=== PATIENT | female | born 1950 | race Caucasian/White ===

== ENCOUNTER 2018-01-11 08:35 | Outpatient (CLI) | payer MEDICARE, MEDICAID ==
--- NOTE | 2018-01-11 10:47 | CT ---
POSTCONTRAST SOFT TISSUE NECTK CT CHEST CT ABDOMEN CT: Date: 01/11/18 HISTORY: Malignant neoplasm of lung. Metastasis to lymph nodes and liver. COMPARISON: 05/14/17. TECHNIQUE: Postcontrast soft tissue neck CT, chest CT, and abdomen CT are performed in the axial plane. Reformat jaren images are submitted for interpretation. FINDINGS: POSTCONTRAST SOFT TISSUE NECK CT: There is fullness along the posterior left oral cavity. The possibility of a mucosal based lesion can not be completely excluded. There is some mass effect due to medial deviation of the left internal ca rotid artery. Midline fatty raphe of the tongue is preserved. Limited evaluation of the oral cavity d ue to dental amalgam artifact. Epiglottis has a normal caliber. Pre-epiglottic fat is preserved. Ther e is no prevertebral soft tissue swelling. Symmetric attenuation of the parotid and submandibular gla nds. Symmetric attenuation of the sternocleidomastoid muscles. No abnormal attenuation throughout the neck . No evidence of lymphadenopathy. Varying degrees of central canal stenosis and foraminal narrowing on the basis of degenerative change . CHEST CT: No mediastinal mass, lymphadenopathy, or hematoma. Heart size is within normal limits. No pericardial effusion. Thoracic aorta and abdominal aorta have an overall normal caliber. No periaortic fat stran ding. There is mild prominence of the infrarenal abdominal aorta, measuring 2.6 x 2.5 cm. Central pulmonary arteries have appropriate enhancement. No mediastinal mass, lymphadenopathy, or hematoma. There are coronary artery calcifications. No signi ficant pericardial effusion. Trachea and central bronchi are patent. No suspicious masses or nodules in the left lung. Calcified g ranuloma in the left lower lobe. Atelectasis or scarring in the lingula. Spiculated opacity in the ri ght upper lobe measuring 0.7 cm. Lesion is too small for percutaneous biopsy. No additional masses in the right lung. The right upper lobe mass has developed since the previous examination. ABDOMEN CT: Dilatation of the intra and extrahepatic biliary system due to previous cholecystectomy. Liver, splee n, pancreas, and adrenal glands have appropriate enhancement. Stable hypodensity in the right hepatic lobe, measuring 0.8 x 0.6 cm. Symmetric enhancement of the kidneys. Attenuation of the psoas muscles. No mesenteric mass, lymphadenopathy, free air or free fluid. Limited evaluation of the alimentary canal due to lack of oral contrast. No lytic or blastic lesions in the visualized osseous structures. IMPRESSION: 1. Spiculated nodule in the right upper lobe, developed since the prior examination. Lesion is too s mall for percutaneous biopsy. PET imaging is recommended. 2. Stable hypodensity in the right hepatic lobe. 3. Abnormal soft tissue density in posterior left oral cavity. Direct visualization is recommended. POS: [facility]
[2018-01-11] MEDS ORDERED: Iopamidol 370 76% 100 ML VIAL ONE (13:22)
== END 2018-01-11 08:36 | disposition home or self-care (01) ==
LOC: CT 08:35
PROVIDERS: ATTEND Internal Medicine Medical Oncology
DX: C34.90 Malignant neoplasm of unspecified part of unspecified bronchus or lung (principal); C78.7 Secondary malignant neoplasm of liver and intrahepatic bile duct; C77.9 Secondary and unspecified malignant neoplasm of lymph node, unspecified; R91.8 Other nonspecific abnormal finding of lung field
CPT/HCPCS: 70491; 71260; 74160

== ENCOUNTER 2018-02-23 08:33 | Outpatient (CLI) | payer MEDICARE, MEDICAID ==
--- NOTE | 2018-02-23 10:47 | CT ---
CT OF THE CHEST WITH CONTRAST AND CT OF THE ABDOMEN WITH CONTRAST: Date: 02/23/18 HISTORY: 68-year-old female with malignant neoplasm of the lung. Abdominal aortic aneurysm. COMPARISON: 05/14/17 and 01/11/18. TECHNIQUE: 1. Multiple contiguous axial images were obtained in a CT of the chest with contrast. Coronal reform ats were performed. 2. Multiple contiguous axial images were obtained in a CT of the abdomen only with contrast. PO cont rast was administered. Coronal reformats were performed. FINDINGS: CT CHEST: There is a spiculated mass on image 32 of 66 in the right upper lobe measuring 7.0 mm in size. A calc ified granuloma is seen in the left lung base. No other pulmonary nodules are seen. Emphysematous khalif nges are seen in the lungs. No pneumothorax or pleural effusions are seen. The heart is normal in size without focal cardiac abnormality. Calcifications are seen in the coronar y arteries. No hilar or mediastinal lymphadenopathy are seen. There are calcified hilar and mediastin al lymph nodes. The chest wall soft tissues are unremarkable. No suspicious osseous lesions are seen in the bones of the thorax. CT ABDOMEN: The gallbladder has been removed. There is mild enlargement of the common bile duct and of the centra l intrahepatic biliary tree, which may be a reservoir effect from prior cholecystectomy. This is unch anged compared to the prior examination. There is a stable hypodense region in the right lobe of the liver measuring 6-7 mm in size. This is nonspecific. No new liver lesions are seen. A subcentimeter hypodensity is seen in the right kidney which is too small to definitely characterize but likely represents a cyst. The left kidney, adrenal glands, spleen, and pancreas are unremarkable . No free air, free fluid, or stranding changes are seen in the abdomen. The visualized large and small bowel are unremarkable. There is ectasia of the aorta at the level of the renal arteries. This measures 2.6 cm in greatest di mension. No abdominal adenopathy is seen. No suspicious osseous lesions are seen in the lumbar spine. The abdominal wall soft tissues are unrem arkable. IMPRESSION: 1. Spiculated mass in the right upper lobe may represent a metastatic focus. This has not changed si gnificantly compared to the prior examination. 2. Stable hypodensity in the right liver is too small to definitively characterize. 3. Right renal cyst. POS: [facility]
[2018-02-23] MEDS ORDERED: Iopamidol 370 76% 100 ML VIAL ONE (14:45)
== END 2018-02-23 08:34 | disposition home or self-care (01) ==
LOC: CT 08:33
PROVIDERS: ATTEND Internal Medicine Cardiovascular Disease
DX: C34.90 Malignant neoplasm of unspecified part of unspecified bronchus or lung (principal); C39.9 Malignant neoplasm of lower respiratory tract, part unspecified; N28.1 Cyst of kidney, acquired; R91.8 Other nonspecific abnormal finding of lung field; R93.2 Abnormal findings on diagnostic imaging of liver and biliary tract
CPT/HCPCS: 71260; 74160

== ENCOUNTER 2018-04-22 15:13 | Observation (INO) | payer MEDICARE, MEDICAID ==
--- NOTE | 2018-04-22 16:58 | PDOC.EVN ---
Event Note - Event Note Event Note: H&P dictated [id number]
[2018-04-22 17:31] VITALS: BMI 23.8
[2018-04-22] MEDS ORDERED: Nicotine 14 MG PATCH TD SCH (18:00)
--- NOTE | 2018-04-22 19:24 | HP ---
PRIMARY CARE PHYSICIAN: Madison Fallon M.D. CHIEF COMPLAINT: Left-sided weakness. HISTORY OF PRESENT ILLNESS: The patient is a 68-year-old female with a past medical history of strok e 10 years ago with residual right-sided deficits, hyperlipidemia, COPD, hypothyroidism as well as a history of [place], status post 2 stents, last June in 2016, history of metastatic small cell lung cance r, reportedly stable who presents with left-sided weakness of the upper and lower extremity that was more than baseline. Symptoms started this morning. She states that her left arm started hurting a l ittle bit, but then actually got weak. Her left lower extremity was also noted to be somewhat heavy. However, the patient had a CT scan done in the emergency department in [place], which showed n o evidence of acute cortical infarct. There is a question of whether to perform tPA, but patient's s ymptoms were resolving by that point, so she was transferred over here for further management and gregorio luation. At this time, patient states that her left lower extremity is actually back to baseline, bu t her left upper extremity is still somewhat weak. Labs were very grossly unremarkable with normal c hemistry, CBC. Patient reports no chest pain, shortness of breath, nausea or vomiting. The patient still actively smokes about half pack per day. REVIEW OF SYSTEMS: Twelve point review of systems negative except the specified in the HPI. PAST MEDICAL HISTORY: History of CVA, hyperlipidemia, bipolar disorder, hypothyroidism, COPD, stable metastatic small cell lung cancer. PAST SURGICAL HISTORY: History of right knee replacement, cataract surgery, left wrist repair, histo ry of hysterectomy and tonsillectomy. FAMILY HISTORY: Mother has history of stroke. SOCIAL HISTORY: The patient has smoked half pack a day for 30 years. She denies any alcohol abuse. No history of illicit drugs. HOME MEDICATIONS: 1. Aspirin 81 mg p.o. daily. 2. Lipitor 40 mg p.o. daily. 3. Synthroid 25 mcg p.o. daily. 4. Depakote 500 mg p.o. daily. 5. Celexa 10 mg p.o. daily. 6. Advair. 7. Zantac 150 mg p.o. b.i.d. ALLERGIES: Patient is allergic to IODINATED CONTRAST, PENICILLIN, SULFA, VICODIN, HYDROCODONE, and C ODEINE. PHYSICAL EXAMINATION: VITAL SIGNS: Temperature 97, blood pressure 132/71, pulse 71, respiration rate 16. GENERAL: Awake, alert, oriented, no acute distress. HEENT: Mucous membranes moist. HEART: Regular rate and rhythm, no murmurs, rubs or gallops. LUNGS: Slightly diminished at the bases bilaterally, but no wheezes. ABDOMEN: Nontender, nondistended. EXTREMITIES: No cyanosis, clubbing or edema. NEUROLOGIC: Left upper extremity is approximately 4/5 in strength of the right upper extremity, appr oximately 5/5 in strength. Left lower extremity and right lower extremity strength approximately sym metrical. LABORATORY VALUES: CBC, WBC 6.8, hemoglobin 12, hematocrit 36, platelets 212. PT 12.6, INR 0.9, PTT 27.6. D-dimer 0.31, sodium 139, potassium 4.4, chloride 106, bicarbonate 23, BUN 11, creatinine 0.7 , glucose was 104, total bilirubin was 0.4, AST 11, ALT 9, alkaline phosphatase 75. Troponin negativ e. BNP was 76, albumin 3.9. CT of the head again was negative for any acute intracranial abnormalit y. Chest x-ray demonstrated no acute cardiopulmonary abnormality, stable chronic lung changes. Stab le mild cardiomegaly. ASSESSMENT AND PLAN: The patient is a 68-year-old female with a history of hyperlipidemia, history o f cerebrovascular accident, history of abdominal aortic aneurysm under surveillance, history of coron ana artery disease status post 2 stents in 06/2017, hypothyroidism, and chronic obstructive pulmonary disease who presents with a left-sided weakness that is weaker than baseline. This may represent tr ansient ischemic attack symptoms are improving. Given the symptoms started this morning and it is no w approximately 5:00 p.m., the patient is out of the window for TPA. 1. Transient ischemic attack: We will obtain stroke workup and Neurology consultation. We will obt ain MRI of the brain, carotid Dopplers as well as echocardiogram of the heart with bubble study to ru le out patent foramen ovale. We will add Plavix. The patient is reportedly just taking a baby aspir in once a day. The patient denies any knowledge of ever having taken Plavix, even though it was stat ed in the past on documentation that she was supposed to be on it after her cardiac catheterization l ast year. Therefore, we will choose dual antiplatelet therapy due to the history of coronary artery disease as well. Smoking cessation and risk factor modification. We will obtain lipids and A1c. 2. Hyperlipidemia: Continue Lipitor 40 mg p.o. daily. 3. Hypothyroidism: Continue Synthroid. 4. Coronary artery disease, status post stent in 06/2017. Aspirin, Plavix, and statin. 5. Chronic obstructive pulmonary disease: We will restart inhalers when medications reconciled. 6. Bipolar disorder. We will continue Depakote. 7. Deep venous thrombosis prophylaxis: Subcutaneous Lovenox. 8. The patient is a FULL CODE and this was confirmed at bedside.
[2018-04-22] MEDS ORDERED: Divalproex Sodium DR 500 MG TAB PO SCH (21:00)
[2018-04-22] MEDS ORDERED: Atorvastatin Calcium 40 MG TAB PO SCH (21:00)
[2018-04-23 05:11] LABS: Anion Gap 11 mmol/L (10-20); BUN (Urea Nitrogen) 15 mg/dL (9.8-20.1); Calc. Creatinine Clearance 67 mL/min (70-130); Calcium 9.3 mg/dL (7.8-10.44); Carbon Dioxide 25 mmol/L (23-31); Chloride 107 mmol/L (98-107); Cholesterol 118 mg/dl (< 200 Desired); Estimated GFR-MDRD 73; Glucose 102 mg/dL (80-115); HDL Cholesterol 40 mg/dL (>60 Neg Risk); LDL Cholesterol, Calculated 60 mg/dL; Potassium 4.6 mmol/L (3.5-5.1); Sodium 138 mmol/L (136-145); Triglycerides 90 mg/dL (Less than 150)
[2018-04-23 05:54] LABS: Eosinophils 3 % (0-10); Lymphocytes 45 % (21-51); MDiff Complete? YES; Mean Corpuscular HGB CONC 34.4 g/dL (32.0-36.0); Mean Corpuscular Hemoglobin 33.9 pg (27.0-31.0); Mean Corpuscular Volume 98.5 fl (81.0-99.0); Mean Platelet Volume 7.1 fL (7.4-10.4); Monocytes 7 % (0-10); Neutrophil 45 % (42-75); PLT Morphology Comment Appears Adequate; Platelet Count 201 thou/uL (130-400); RBC Distribution Width 12.6 % (11.5-14.5); RBC Morphology Normal; Red Blood Cell (RBC) Count 3.55 mill/uL (4.20-5.40); White Blood Cell (WBC) Count 6.4 thou/uL (4.8-10.8)
[2018-04-23] MEDS ORDERED: Levothyroxine Sodium 25 MCG TAB PO SCH (06:00)
--- NOTE | 2018-04-23 07:16 | PDOC.PN ---
- Subjective Encounter Start Date: 04/23/18 Encounter Start Time: 07:14 Subjective: no weakness, dysartria, etc - Objective Resuscitation Status: Resuscitation Status FULL:Full Resuscitation MAR Reviewed: Yes Vital Signs & Weight: Vital Signs (12 hours) Temp Pulse Resp BP Pulse Ox 04/23/18 04:00 97.7 F 66 18 121/68 94 L 04/22/18 23:54 98.2 F 73 18 110/65 93 L 04/22/18 20:48 98.2 F 73 18 04/22/18 20:00 98.5 F 84 16 99/73 93 L Weight Weight 134 lb 3.2 oz I&O: 04/22/18 04/23/18 04/24/18 06:59 06:59 06:59 Intake Total 300 Balance 300 Result Diagrams: 04/23/18 04:43 04/23/18 04:43 Phys Exam - Physical Examination Neck: no JVD Respiratory: clear to auscultation bilateral Cardiovascular: RRR, no significant murmur Gastrointestinal: soft, non-tender Musculoskeletal: no edema Neurological: non-focal Dx/Plan (1) TIA (transient ischemic attack) Status: Acute Qualifiers: Transient cerebral ischemia type: carotid artery syndrome (hemispheric) Qualified Code(s): G45.1 - Carotid artery syndrome (hemispheric) (2) CAD (coronary artery disease) Code(s): I25.10 - ATHSCL HEART DISEASE OF [place] CORONARY ARTERY W/O ANG PCTRS Status: Chronic Qualifiers: Coronary Disease-Associated Artery/Lesion type: [place] artery [place] vs. transplanted heart: [place] heart Associated angina: without angina Qualified Code(s): I25.10 - Atherosclerotic heart disease of [place] coronary artery without angina pectoris (3) Dyslipidemia Code(s): E78.5 - HYPERLIPIDEMIA, UNSPECIFIED Status: Chronic (4) S/P PTCA (percutaneous transluminal coronary angioplasty) Code(s): Z98.61 - CORONARY ANGIOPLASTY STATUS Status: Chronic (5) COPD Status: Chronic (6) Small cell carcinoma Code(s): C80.1 - MALIGNANT (PRIMARY) NEOPLASM, UNSPECIFIED Status: Chronic - Plan neuro exam WNL -: on ASA, plavix -: MRI, carotid US pending * .
--- NOTE | 2018-04-23 08:40 | ULT ---
BILATERAL CAROTID DUPLEX ULTRASOUND: Date: 04/23/18 HISTORY: CVA. FINDINGS: Real-time color Doppler evaluation of the right and left carotid systems shows minimal plaque formati on on the left and slightly more pronounced plaque formation at the origin of the right internal pelayo tid artery. On the right side, peak systolic velocities of the common carotid were 55 cm/second. Internal carotid velocities were 67 cm/second and external carotid velocities were 73 cm/second. On the left side, peak systolic velocities of the common carotid were 87 cm/second. Internal carotid velocities were 75 cm/second and external carotid velocities were 72 cm/second. Vertebral flow was antegrade bilaterally. IMPRESSION: No evidence of hemodynamically significant stenosis of either internal carotid artery. POS: [facility]
[2018-04-23] MEDS ORDERED: Enoxaparin Sodium 30 MG/0.3 ML SYRINGE SC SCH (09:00)
[2018-04-23] MEDS ORDERED: Carvedilol 3.125 MG TAB PO SCH (09:00)
[2018-04-23] MEDS ORDERED: Non-Formulary Item 1 EACH (Fluticasone/Salmeterol [Advair Diskus 100/50] 1 INH) IH SCH (09:00)
[2018-04-23] MEDS ORDERED: Citalopram 20 MG TAB PO SCH (09:00)
[2018-04-23] MEDS ORDERED: Divalproex Sodium DR 500 MG TAB PO SCH (09:00)
[2018-04-23] MEDS ORDERED: Clopidogrel Bisulfate 75 MG TAB PO SCH (09:00)
[2018-04-23] MEDS ORDERED: Citalopram 10 MG TAB PO SCH (09:00)
--- NOTE | 2018-04-23 10:37 | MRI ---
NONCONTRAST ENHANCED MRI IMAGES BRAIN: HISTORY: Numbness and weakness. Evaluate for CVA. FINDINGS: Noncontrast-enhanced MRI images of the brain are obtained. Comparison is made to previous exam from 10/02/11. Multiplanar, multisequence noncontrast-enhanced MRI images of the brain are obtained. Images demonstrate some fluid seen in the right mastoid air cell unchanged since the previous exam. This may represent chronic right mastoid sinus disease. The paranasal sinuses are well aerated. The maxillary sinus aeration is significantly improved since the previous comparison exam from 10/02/11. There is cortical atrophy which is more prominent. There is also interval development of extensive d eep white matter ischemic changes which are minimally present but not anywhere as significant as it i s on today's exam. The rest of the brain is unremarkable. No other acute intracranial abnormality is seen. IMPRESSION: Extensive cortical atrophy and deep white matter ischemic changes. The extent of the deep white taco er ischemic change has significantly increased since the previous comparison exam. POS: [facility]
[2018-04-23 11:53] VITALS: BP 118/68; TEMP 98.3
--- NOTE | 2018-04-23 13:04 | DIS ---
TRANSFER OF CARE NOTE PRIMARY CARE PROVIDER: Dr. Madison Fallon DATE OF ADMISSION: 04/22/2018 PRIMARY CARE PROVIDER: 04/23/2018 DISCHARGE DISPOSITION: Home. FINAL DIAGNOSES: 1. Transient ischemic attack. 2. Chronic obstructive pulmonary disease. 3. Coronary artery disease. 4. Dyslipidemia. 5. Tobacco abuse. 6. Lung carcinoma. DISCHARGE MEDICATIONS: Aspirin 325 mg a day, Depakote 1000 mg at bedtime, Celexa 40 mg a day, Coreg 3.125 mg a day, Advair Diskus 1 inhalation every day. Lipitor 40 mg a day, nitroglycerin p.r.n., lev othyroxine 25 mcg a day, DuoNeb 3 mL 1 inhalation every 6 hours as needed, Spiriva 1 inhalation a day , Zantac 150 twice a day. ALLERGIES: HYDROCODONE, SULFA, CODEINE, IODINATED CONTRAST, PENICILLINS. CODE STATUS: FULL. PENDING AT THE TIME OF DISCHARGE: Nothing. DIET: Heart healthy. CONSULTATIONS: None. PROCEDURES: None. HOSPITAL COURSE: The patient presented with left-sided weakness which resolved rapidly. Her CT scan done in outlying ER was unremarkable. Brain MRI done here shows only chronic ischemic change. Heredia tid Doppler showed no significant stenosis. Laboratory: CBC: White count 6.4, hemoglobin 12.0, platelet count 201,000. Basic metabolic profile normal. Cholesterol 118, LDL 60, HDL 40. Unfortunately, the patient still smokes. She has been counseled on stopping smoking. Her aspirin mendez s been raised from 81 mg at 325 mg a day. She has been told to follow up with her PCP in 1 week. He r neurological exam reveals cranial nerves II-XII are intact. Deep tendon reflexes symmetric. Stren gth symmetric. Walking in the [place] without any problems.
[2018-04-23] MEDS ORDERED: Atorvastatin Calcium 40 MG TAB PO SCH (21:00)
[2018-04-24] MEDS ORDERED: Levothyroxine Sodium 25 MCG TAB PO SCH (06:00)
[2018-04-24] MEDS ORDERED: Mometasone/Formoterol 120 PUFF INHALER INH SCH (07:00)
== END 2018-04-23 13:46 | disposition home or self-care (01) ==
LOC: ERS 15:13 → 2SE 16:14
PROVIDERS: ADMIT Internal Medicine; ATTEND Internal Medicine
DX: G45.1 Carotid artery syndrome (hemispheric) (principal); J44.9 Chronic obstructive pulmonary disease, unspecified; I25.10 Atherosclerotic heart disease of native coronary artery without angina pectoris; E78.5 Hyperlipidemia, unspecified; F17.210 Nicotine dependence, cigarettes, uncomplicated; C80.1 Malignant (primary) neoplasm, unspecified; C78.00 Secondary malignant neoplasm of unspecified lung; I69.351 Hemiplegia and hemiparesis following cerebral infarction affecting right dominant side; E03.9 Hypothyroidism, unspecified; I25.2 Old myocardial infarction; F31.9 Bipolar disorder, unspecified; Z79.82 Long term (current) use of aspirin; Z79.51 Long term (current) use of inhaled steroids; Z79.899 Other long term (current) drug therapy; Z88.0 Allergy status to penicillin; Z88.2 Allergy status to sulfonamides; Z88.8 Allergy status to other drugs, medicaments and biological substances; Z91.041 Radiographic dye allergy status; Z95.5 Presence of coronary angioplasty implant and graft
CPT/HCPCS: 70551; 80048; 80061; 85007; 85027; 93880; 96372; 97139 ×4; 99285; G0378; G8978; G8979; G8980; G8987; G8988; G8989; 36415; J1650

== ENCOUNTER 2018-06-30 08:12 | Outpatient (CLI) | payer MEDICARE, MEDICAID ==
--- NOTE | 2018-06-30 10:21 | CT ---
CT THORAX WITH CONTRAST CT ABDOMEN WITH CONTRAST: Date: 06/30/18 HISTORY: C39.9 and C34.9. 68-year-old female with malignant neoplasm right upper lobe lung, small cell carcinoma. Liver metasta sis. TECHNIQUE: IV contrast: Isovue. Oral contrast: Not administered. Single phase scan from thoracic inlet to iliac crests. Coronal reconstructions. COMPARISON: 02/23/18. FINDINGS: The pulmonary nodule in the anterior segment of the right upper lobe measuring 0.7 cm has decreased i n volume. The greatest dimension is still 0.7 cm, but the shape has become less round, and more irreg ular, with loss of volume. There are no new suspicious pulmonary nodules. Several old, healed right p osterior upper rib fracture deformities. No destructive osseous lesion. No mediastinal or hilar lymph adenopathy. No thoracic aortic aneurysm or cardiomegaly. Previously, there was an approximately 0.8 x 0.7 x 0.8 cm hypodense lesion in the right lobe of the l iver at junction between hepatic segments 5 and 8. This is similar in size on the current CT (it was much larger, 5 x 5.6 x 5.1 cm, on an older CT of 12/14/2015). There are no new hepatic lesions. Cholecystectomy clips. Fusiform ectasia of proximal infrarenal abdominal aorta, 2.8 cm. Normal bilate ral kidneys. No adrenal metastasis. No pancreatic mass. No splenomegaly. No free fluid visualized. Up per portions of colon and small intestine are unremarkable. No significant interval change in abdomen . Pelvis was not scanned. IMPRESSION: 1. Small pulmonary nodule in the right upper lobe has changed shape and has decreased in volume (alt michele maximum diameter is unchanged). This is suggestive of partial response to chemotherapy. 2. The very small remnant of the hepatic metastasis in the right lobe of the liver is unchanged. 3. No evidence of new metastatic lesions. POS: [facility]
[2018-06-30] MEDS ORDERED: Iopamidol 370 76% 100 ML VIAL ONE (15:10)
== END 2018-06-30 08:13 | disposition home or self-care (01) ==
LOC: CT 08:12
PROVIDERS: ATTEND Internal Medicine Medical Oncology
DX: C78.7 Secondary malignant neoplasm of liver and intrahepatic bile duct (principal); C34.11 Malignant neoplasm of upper lobe, right bronchus or lung
CPT/HCPCS: 71260; 74160; 82565

== ENCOUNTER 2019-04-05 09:20 | Outpatient (CLI) | payer MEDICARE, MEDICAID ==
[~2019-04-05 09:20] MED LIST: Iopamidol 370 76% 100 ML VIAL ONE
--- NOTE | 2019-04-05 10:52 | CT ---
CT CHEST WITH IV CONTRAST CT ABDOMEN WITH IV CONTRAST: HISTORY: Status post chemoradiation therapy small cell carcinoma. Malignant neoplasm right upper lobe lung. COMPARISON: 06/30/2018 FINDINGS: There has been interval enlargement of the nodule in the anterior segment of the right upper lobe sin ce the last exam currently measuring 15 mm. No other pulmonary nodules are seen. No mediastinal, hilar or axillary mass or lymphadenopathy seen. No pleural or pericardial effusions a re noted. The tiny hypodense lesion in the right lobe of the liver is stable. No new liver lesions are seen. Th ere is a 5 mm low-density lesion in the spleen which is larger than on the previous exam. The patient is post cholecystectomy with stable prominent biliary ducts. The pancreas, adrenal glands and left kidney are normal. Small cysts in the right kidney are again se en. No free air, free fluid or lymphadenopathy seen in the abdomen. There are vascular calcifications wit hout evidence of an is no dilatation of the thoracoabdominal aorta. There are degenerative changes in the thoracic lumbar spine. No osteolytic or osteoblastic lesions are seen. IMPRESSION: 1. Interval enlargement of the right upper lobe nodule suspicious for malignancy/metastatic disease. 2. A 5 mm low-density lesion in the spleen. 3. Stable tiny low-density lesion in the liver.
== END 2019-04-05 09:21 | disposition home or self-care (01) ==
LOC: CT 09:20
PROVIDERS: ATTEND Internal Medicine Medical Oncology
DX: C34.90 Malignant neoplasm of unspecified part of unspecified bronchus or lung (principal); C78.7 Secondary malignant neoplasm of liver and intrahepatic bile duct; R91.8 Other nonspecific abnormal finding of lung field; R91.1 Solitary pulmonary nodule; D73.89 Other diseases of spleen; K76.9 Liver disease, unspecified
CPT/HCPCS: 71260; 74160; 82565; Q9967

== ENCOUNTER 2019-04-05 11:19 | Outpatient (CLI) | payer MEDICARE, MEDICAID ==
--- NOTE | 2019-04-05 11:53 | MMO ---
Bilateral MAMMO Bilat Screen [facility]. CLINICAL HISTORY: Patient is 69 years old and is seen for screening. The patient has no family history of breast cancer. The patient has a history of lung cancer in 2016. The patient has a history of left Excisional Biopsy in ? - benign. VIEWS: The views performed were: bilateral craniocaudal with tomosynthesis and bilateral mediolateral oblique with tomosynthesis. FILMS COMPARED: The present examination has been compared to prior imaging studies performed at [facility] on 01/29/2015 and 08/14/2017. MAMMOGRAM FINDINGS: There are scattered fibroglandular densities. There are stable benign appearing calcifications seen in the left breast. There are no suspicious masses, suspicious calcifications, or new areas of architectural distortion. IMPRESSION: THERE IS NO MAMMOGRAPHIC EVIDENCE OF MALIGNANCY. A ROUTINE FOLLOW-UP MAMMOGRAM IN 1 YEAR IS RECOMMENDED. THE RESULTS OF THIS EXAM WERE SENT TO THE PATIENT. ACR BI-RADS Category 2 - Benign finding MAMMOGRAPHY NOTE: 1. A negative mammogram report should not delay a biopsy if a dominant of clinically suspicious mass is present. 2. Approximately 10% to 15% of breast cancers are not detected by mammography. 3. Adenosis and dense breasts may obscure an underlying neoplasm.
== END 2019-04-05 11:20 | disposition home or self-care (01) ==
LOC: BICMAMMO 11:19
PROVIDERS: ATTEND Internal Medicine Medical Oncology
DX: Z12.31 Encounter for screening mammogram for malignant neoplasm of breast (principal); Z85.118 Personal history of other malignant neoplasm of bronchus and lung
CPT/HCPCS: 77063; 77067

== ENCOUNTER 2019-04-14 12:29 | Outpatient (CLI) | payer MEDICARE, MEDICAID ==
--- NOTE | 2019-04-14 16:07 | PET ---
PET CT: 04/14/19 HISTORY: 69-year-old female with small cell carcinoma of the lung, metastatic disease to the right lung. Exam requested for restaging. Patient's last chemotherapy was in June 2018. COMPARISON: None. CORRELATION: CT chest and abdomen dated 04/05/19. There is mild focal increased uptake in the posterior aspect of the right upper lobe lung nodule note d on the CT scan with an SUV of 2.4. No other hypermetabolic pulmonary nodules are seen. No kaylan hypermetabolism is seen in the neck, mediastinum, hilar regions, axillary, abdomen or pelvis . No hypermetabolic liver, adrenal or skeletal lesions are seen. There is physiologic activity in the GI and tracts and the visualized portions of the brain. The CT scan used for attenuation correction demonstrates no evidence of pleural effusions or ascites. IMPRESSION: Mildly increased uptake in the posterior aspect of the right upper lobe lung nodule should be conside red suspicious. POS: [facility]
== END 2019-04-14 12:30 | disposition home or self-care (01) ==
LOC: PET 12:29
PROVIDERS: ATTEND Internal Medicine Medical Oncology
DX: C34.90 Malignant neoplasm of unspecified part of unspecified bronchus or lung (principal); C78.01 Secondary malignant neoplasm of right lung; R91.1 Solitary pulmonary nodule
CPT/HCPCS: 78815; A9552

== ENCOUNTER 2019-05-02 08:39 | Day surgery (SDC) | payer MEDICARE, MEDICAID ==
[2019-04-29 13:47] VITALS: BMI 26.5
[~2019-05-02 08:39] MED LIST changes: -Iopamidol 370 76% 100 ML VIAL ONE; +Prevnar 13-Val Conj/PF 0.5 ML SYRINGE IM ONE
[2019-05-02 09:04] LABS: INR-International Normal Ratio 0.9; PTT 29.2 SEC (22.9-36.1); Prothrombin Time 12.7 SEC (12.0-14.7)
[2019-05-02 10:00] VITALS: BP 118/71; TEMP 97.5
[2019-05-02] MEDS ORDERED: Midazolam HCl 2 mg/2 ml Vial ONE (10:08)
[2019-05-02] MEDS ORDERED: Fentanyl 100 MCG/2 ML VIAL ONE (10:09)
[2019-05-02] MEDS ORDERED: Sodium Bicarbonate 2.5 MEQ/5 ML VIAL ONE (10:09)
--- NOTE | 2019-05-02 11:15 | RAD ---
Chest 2 view inspiratory expiratory HISTORY: Right lung mass with biopsy. FINDINGS: Cardiac silhouette and pulmonary vasculature are unremarkable. Lungs are hyperinflated. Rig ht upper lobe nodule faintly seen. At the right apex, old healed posterior right upper rib fractures are apparent. This mimics a pneumot horax. No pneumothorax is reliably demonstrated. Patient will be held with nursing care for another 2 hours and repeat imaging.
--- NOTE | 2019-05-02 11:46 | CT ---
CT-guided right lung mass biopsy Conscious sedation: Approximately 45 minutes were spent with the patient for conscious sedation. HISTORY: Right lung mass. FINDINGS: After explaining the procedure and answering all questions, limited CT imaging of the chest was performed. Sterile technique, buffered local anesthesia, conscious sedation, CT guidance, and an anterior approach were used to carefully advanced the tip of a 19-gauge trocar needle into the sma ll right upper lobe mass. Position was confirmed with CT. A total of 8 20-gauge core biopsy specimens were obtained and eventually submitted to pathology for e valuation. Small amount of blood was seen surrounding the nodule after biopsy minimal right pleural gas was apparent. Needle was removed. Patient tolerated the procedure well and was returned to the [facility] area in good condition for further monitoring. IMPRESSION: Technically successful CT-guided biopsy right upper lobe mass. Pathology is pending.
--- NOTE | 2019-05-02 13:23 | RAD ---
Chest inspiratory expiratory views HISTORY: Lung biopsy. Follow-up. FINDINGS: At the right apex on both views, a tiny amount of pleural gas is present. Other findings are stable. Patient is experiencing no clinical difficulty and will be dismissed with detailed instructions melbaar brett self monitoring for shortness of breath.
== END 2019-05-02 13:30 | disposition home or self-care (01) ==
LOC: RAD 08:39
PROVIDERS: ATTEND Internal Medicine Medical Oncology
DX: R91.8 Other nonspecific abnormal finding of lung field (principal); J44.9 Chronic obstructive pulmonary disease, unspecified; E78.5 Hyperlipidemia, unspecified; K21.9 Gastro-esophageal reflux disease without esophagitis; M19.90 Unspecified osteoarthritis, unspecified site; Z79.899 Other long term (current) drug therapy; Z87.891 Personal history of nicotine dependence; Z88.6 Allergy status to analgesic agent; Z91.041 Radiographic dye allergy status
CPT/HCPCS: 32405; 36415; 71045; 77012; 85610; 85730; 88305; 88312; 88313; 88341; 88342; J2250; J3010

== ENCOUNTER 2019-09-08 11:12 | Outpatient (CLI) | payer MEDICARE, MEDICAID ==
--- NOTE | 2019-09-08 15:09 | PET ---
PET CT: HISTORY: 69-year-old female with small cell lung cancer. Status post chemo/radiation therapy. Pain in the spin e. Exam requested for restaging. TECHNIQUE: PET scanning with CT attenuation correction was performed from the base of the brain through the prox imal thighs following the intravenous administration of 11.5 mCi [id number] in the right antecubital fos sa. COMPARISON: 04/14/19. CORRELATION: CT chest and abdomen and 06/29/19. FINDINGS: No kaylan hypermetabolism is seen in the neck, chest, axilla, abdomen, or pelvis. No hypermetabolic pu lmonary nodules, liver, adrenal, or skeletal lesions are seen. There is physiologic activity in the GI and tracts, and the visualized portion of the brain. The CT scan used for attenuation correction demonstrates no evidence of pleural effusions or ascites. There is sclerosis noted in the vertebral body of T8 vertebra. IMPRESSION: 1. No PET evidence of metastatic disease. 2. Sclerosis involving T8 vertebra. This should be evaluated with MRI of thoracic spine (with and wi thout IV contrast). POS: MATTHEW
== END 2019-09-08 11:13 | disposition home or self-care (01) ==
LOC: PET 11:12
PROVIDERS: ATTEND Family Medicine
DX: M54.9 Dorsalgia, unspecified (principal); G95.89 Other specified diseases of spinal cord
CPT/HCPCS: 78815; A9552

== ENCOUNTER 2019-09-28 12:14 | Outpatient (CLI) | payer MEDICARE, MEDICAID ==
[~2019-09-28 12:14] MED LIST changes: +Gadobenate Dimeglumine 529 MG/1 ML (20ML VIAL) ONE; -Prevnar 13-Val Conj/PF 0.5 ML SYRINGE IM ONE
--- NOTE | 2019-09-28 14:19 | RAD ---
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 Lungs:Clear of acute process. Atherosclerotic changes of the aorta. No confluent pneumonia, overt edema, pleural effusion, pneumothorax, or other significant acute proce ss. IMPRESSION: Stable chest. Atherosclerosis of the aorta. No acute intrathoracic disease.
--- NOTE | 2019-09-28 14:38 | MRI ---
MRI THORACIC SPINE WITH AND WITHOUT CONTRAST: HISTORY: Mid back pain x2 months. Patient has frequent falls. COMPARISON: 12/26/2015. CORRELATION: Pet imaging 09/08/2019. FINDINGS: There is vertebral body fracture with mild loss of vertebral body height and mild retropulsion at T8. There is T1 marrow signal hypointensity with associated T2 and STIR hyperintensity and enhancement. Abnormal signal involves the superior three quarters of vertebral body. Abnormal signal extends into both pedicles. Mild loss of vertebral body height at 4 and T5 without significant STIR hyperintensity. Findings are similar to the previous examination. Correlation made with previous MRI does demonstrate a metastatic deposit at T8 and T5. Currently, no evidence of osseous metastases. Though there is a frac ture at T8, the absence of a metastatic lesion favors osteoporotic fracture over a pathologic fracture. Appropriate signal intensity if the visualized mediastinum, lung parenchyma and solid organs. Conus medullaris terminates at the upper aspect of L1. The thoracic cord has a normal size and signal intensity. No cord malacia. No cord expansion. No path ologic enhancement. IMPRESSION: Currently there does not appear to be evidence of osseous metastases. However, there is a fracture at the T8 vertebral body level which is a site of a remote metastatic deposit. Given the absence of metastases, an osteoporotic fracture, rather than a pathologic fracture is favored. There is mild ret ropulsion. Abnormal marrow signal intensity extends into both pedicles, worrisome for an unstable 3 column fracture. Neurosurgical consultation is recommended. CODE T
== END 2019-09-28 12:15 | disposition home or self-care (01) ==
LOC: BICMRI 12:14
PROVIDERS: ATTEND Family Medicine
DX: C34.90 Malignant neoplasm of unspecified part of unspecified bronchus or lung (principal); R07.81 Pleurodynia; M54.9 Dorsalgia, unspecified; R93.89 Abnormal findings on diagnostic imaging of other specified body structures; Z85.118 Personal history of other malignant neoplasm of bronchus and lung; C39.9 Malignant neoplasm of lower respiratory tract, part unspecified; I70.0 Atherosclerosis of aorta; S22.069A Unspecified fracture of T7-T8 vertebra, initial encounter for closed fracture
CPT/HCPCS: 71046; 72157; 82565; A9577

== ENCOUNTER 2021-05-21 07:53 | Outpatient (CLI) | payer MEDICARE, OTHER | END 2021-05-21 07:54 | disposition home or self-care (01) | LOC: BICMAMMO 07:53 | PROVIDERS: ATTEND Internal Medicine Medical Oncology | DX: Z12.31 Encounter for screening mammogram for malignant neoplasm of breast (principal); Z13.820 Encounter for screening for osteoporosis; N95.8 Other specified menopausal and perimenopausal disorders; Z85.118 Personal history of other malignant neoplasm of bronchus and lung; M81.0 Age-related osteoporosis without current pathological fracture | CPT/HCPCS: 71046; 77063; 77067; 77080 ==

== ENCOUNTER 2021-06-03 12:02 | Outpatient (CLI) | payer MEDICARE, OTHER ==
[~2021-06-03 12:02] MED LIST changes: -Gadobenate Dimeglumine 529 MG/1 ML (20ML VIAL) ONE; +Magnevist 469MG/ML 20 ML VIAL ONE
== END 2021-06-03 12:03 | disposition home or self-care (01) ==
LOC: BICMRI 12:02
PROVIDERS: ATTEND Psychiatry & Neurology Neurology
DX: G31.84 Mild cognitive impairment of uncertain or unknown etiology (principal)
CPT/HCPCS: 70553; 82565; A9579

== ENCOUNTER 2021-11-18 10:52 | Inpatient (IN) | payer MEDICARE, MEDICAID ==
[2021-11-19 02:21] VITALS: BMI 24.0
[2021-11-19] MEDS ORDERED: Ondansetron PF 4 MG/2 ML Vial IVP PRN (03:30)
[2021-11-19] MEDS ORDERED: Acetaminophen 325 MG TAB PO PRN (03:30)
[2021-11-19 05:25] LABS: #Lymphocytes 1.4 thou/uL (1.20-3.40); #Monocytes 0.2 thou/uL (0.11-0.59); #Neutrophils 3.8 thou/uL (1.40-6.50); %Basophils 0.5 % (0.0-1.0); %Eosinophils 0.3 % (0.0-10.0); %Lymphocytes 25.5 % (21.0-51.0); %Monocytes 4.2 % (0.0-10.0); %Neutrophils 69.5 % (42.0-75.0); Hemoglobin 12.3 g/dL (12.0-16.0); Mean Corpuscular HGB CONC 33.9 g/dL (32.0-36.0); Mean Corpuscular Hemoglobin 33.1 pg (27.0-31.0); Mean Corpuscular Volume 97.8 fL (78.0-98.0); Platelet Count 153 thou/uL (130-400); RBC Distribution Width 12.8 % (11.5-14.5); Red Blood Cell (RBC) Count 3.73 mill/uL (4.20-5.40); White Blood Cell (WBC) Count 5.5 thou/uL (4.8-10.8)
[2021-11-19 05:42] LABS: Anion Gap 10 mmol/L (10-20); BUN (Urea Nitrogen) 29 mg/dL (9.8-20.1); Calc. Creatinine Clearance 74 mL/min (70-130); Calcium 9.3 mg/dL (7.8-10.44); Carbon Dioxide 25 mmol/L (23-31); Chloride 104 mmol/L (98-107); Glucose 98 mg/dL (80-115); Potassium 4.4 mmol/L (3.5-5.1); Sodium 135 mmol/L (136-145)
[2021-11-19] MEDS ORDERED: Aspirin 81 mg Enteric Coated Tablet PO SCH ×2 (09:00→09:39)
[2021-11-19] MEDS: Enoxaparin Sodium 40 MG/0.4 ML SYRINGE SC SCH (09:05)
[2021-11-19] MEDS ORDERED: Lorazepam 2 MG/ML VIAL SLOW IVP SCH (10:15)
[2021-11-19] MEDS ORDERED: Aspirin 325 mg Enteric Coated Tablet PO SCH (10:15)
[2021-11-19] MEDS ORDERED: Magnevist 469MG/ML 20 ML VIAL ONE (10:22)
[2021-11-19] MEDS ORDERED: Atorvastatin Calcium 40 MG TAB PO SCH (21:00)
[2021-11-20 06:07] LABS: #Eosinphils 0.1 thou/uL (0.0-0.7); #Monocytes 0.4 thou/uL (0.11-0.59); #Neutrophils 4.1 thou/uL (1.40-6.50); %Basophils 0.1 % (0.0-1.0); %Lymphocytes 30.3 % (21.0-51.0); %Monocytes 5.9 % (0.0-10.0); %Neutrophils 62.8 % (42.0-75.0); Hemoglobin 11.6 g/dL (12.0-16.0); Mean Corpuscular HGB CONC 34.2 g/dL (32.0-36.0); Mean Corpuscular Hemoglobin 33.1 pg (27.0-31.0); Mean Corpuscular Volume 96.9 fL (78.0-98.0); Mean Platelet Volume 8.2 fL (7.4-10.4); Platelet Count 150 thou/uL (130-400); RBC Distribution Width 12.7 % (11.5-14.5); Red Blood Cell (RBC) Count 3.51 mill/uL (4.20-5.40); White Blood Cell (WBC) Count 6.5 thou/uL (4.8-10.8)
[2021-11-20 06:31] LABS: Anion Gap 9 mmol/L (10-20); BUN (Urea Nitrogen) 28 mg/dL (9.8-20.1); Calc. Creatinine Clearance 89 mL/min (70-130); Calcium 8.9 mg/dL (7.8-10.44); Carbon Dioxide 27 mmol/L (23-31); Cardiac Risk 8.1 (Less than 4.5); Chloride 104 mmol/L (98-107); Cholesterol 161 mg/dl (< 200 Desired); Glucose 76 mg/dL (80-115); HDL Cholesterol 20 mg/dL (>60 Neg Risk); LDL Cholesterol, Calculated 101 mg/dL; Potassium 3.4 mmol/L (3.5-5.1); Sodium 137 mmol/L (136-145); Triglycerides 198 mg/dL (Less than 150)
[2021-11-20] MEDS ORDERED: Potassium Chloride 10 MEQ in Premix Bag 1 BAG IVPB SCH (09:00)
[2021-11-20] MEDS ORDERED: Aspirin 325 mg Enteric Coated Tablet PO SCH (09:00)
[2021-11-20] MEDS ORDERED: Aspirin 300 MG Suppository PR SCH (09:00)
[2021-11-20] MEDS: Enoxaparin Sodium 40 MG/0.4 ML SYRINGE SC SCH (10:19)
[2021-11-20] MEDS: Aspirin 325 MG TAB PO SCH (10:24)
[2021-11-20] MEDS: Simvastatin 10 MG TAB PO SCH (21:08)
[2021-11-21] MEDS: Levothyroxine Sodium 25 MCG TAB PO SCH (06:25)
[2021-11-21 06:43] LABS: #Eosinphils 0.1 thou/uL (0.0-0.7); #Lymphocytes 1.9 thou/uL (1.20-3.40); #Monocytes 0.6 thou/uL (0.11-0.59); #Neutrophils 3.8 thou/uL (1.40-6.50); %Basophils 0.3 % (0.0-1.0); %Eosinophils 1.1 % (0.0-10.0); %Monocytes 8.8 % (0.0-10.0); %Neutrophils 59.8 % (42.0-75.0); Hemoglobin 12.6 g/dL (12.0-16.0); Mean Corpuscular HGB CONC 34.5 g/dL (32.0-36.0); Mean Corpuscular Hemoglobin 33.3 pg (27.0-31.0); Mean Corpuscular Volume 96.6 fL (78.0-98.0); Mean Platelet Volume 8.1 fL (7.4-10.4); Platelet Count 159 thou/uL (130-400); RBC Distribution Width 12.6 % (11.5-14.5); Red Blood Cell (RBC) Count 3.79 mill/uL (4.20-5.40); White Blood Cell (WBC) Count 6.4 thou/uL (4.8-10.8)
[2021-11-21] MEDS ORDERED: Ipratropium Bromide 2.5 ml Neb NEB SCH (07:00)
[2021-11-21 07:04] LABS: Anion Gap 11 mmol/L (10-20); BUN (Urea Nitrogen) 22 mg/dL (9.8-20.1); Calc. Creatinine Clearance 83 mL/min (70-130); Calcium 9.2 mg/dL (7.8-10.44); Carbon Dioxide 27 mmol/L (23-31); Chloride 102 mmol/L (98-107); Glucose 77 mg/dL (80-115); Potassium 3.6 mmol/L (3.5-5.1); Sodium 136 mmol/L (136-145)
[2021-11-21] MEDS ORDERED: Non-Formulary Item 1 EACH (Umeclidinium Brm/Vilanterol Tr [Anoro Ellipta] 62.5 MCG/25 MCG IH SCH (09:00)
[2021-11-21] MEDS: Aspirin 325 MG TAB PO SCH (09:32)
[2021-11-21] MEDS: Clopidogrel Bisulfate 75 MG TAB PO SCH (09:32)
[2021-11-21] MEDS: Citalopram 20 MG TAB PO SCH (09:32)
[2021-11-21] MEDS: Enoxaparin Sodium 40 MG/0.4 ML SYRINGE SC SCH (09:35)
[2021-11-21] MEDS: Dextrose 5 % And 0.9 % NaCl 1,000 ML IV SCH (17:51)
[2021-11-21] MEDS ORDERED: Divalproex Sodium 125 mg Sprinkle Capsule PO SCH (21:00)
[2021-11-21] MEDS: Simvastatin 10 MG TAB PO SCH (21:54)
[2021-11-22] MEDS: Levothyroxine Sodium 25 MCG TAB PO SCH (05:28)
[2021-11-22] MEDS: Enoxaparin Sodium 40 MG/0.4 ML SYRINGE SC SCH (08:55)
[2021-11-22] MEDS: Clopidogrel Bisulfate 75 MG TAB PO SCH (08:55)
[2021-11-22] MEDS: Citalopram 20 MG TAB PO SCH (08:55)
[2021-11-22] MEDS: Aspirin 325 MG TAB PO SCH (08:55)
[2021-11-22] MEDS: Dextrose 5 % And 0.9 % NaCl 1,000 ML IV SCH ×2 (08:57→22:43)
[2021-11-22] MEDS ORDERED: Divalproex Sodium 125 mg Sprinkle Capsule PO SCH (19:55)
[2021-11-22] MEDS: Simvastatin 10 MG TAB PO SCH (22:20)
[2021-11-23] MEDS: Levothyroxine Sodium 25 MCG TAB PO SCH (05:43)
[2021-11-23] MEDS: Enoxaparin Sodium 40 MG/0.4 ML SYRINGE SC SCH (08:31)
[2021-11-23] MEDS: Citalopram 20 MG TAB PO SCH (08:31)
[2021-11-23] MEDS: Aspirin 325 MG TAB PO SCH (08:31)
[2021-11-23] MEDS: Dextrose 5 % And 0.9 % NaCl 1,000 ML IV SCH (12:54)
[2021-11-23] MEDS ORDERED: Divalproex Sodium 125 mg Sprinkle Capsule PO SCH (23:00)
[2021-11-23] MEDS: Simvastatin 10 MG TAB PO SCH (23:31)
[2021-11-24] MEDS: Dextrose 5 % And 0.9 % NaCl 1,000 ML IV SCH ×2 (02:35→15:47)
[2021-11-24] MEDS: Levothyroxine Sodium 25 MCG TAB PO SCH (06:27)
[2021-11-24] MEDS: Enoxaparin Sodium 40 MG/0.4 ML SYRINGE SC SCH (09:53)
[2021-11-24] MEDS: Aspirin 325 MG TAB PO SCH (09:54)
[2021-11-24] MEDS: Citalopram 20 MG TAB PO SCH (09:54)
[2021-11-24] MEDS ORDERED: Divalproex Sodium 125 mg Sprinkle Capsule PO SCH (21:00)
[2021-11-24] MEDS: Simvastatin 10 MG TAB PO SCH (22:17)
[2021-11-25] MEDS: Levothyroxine Sodium 25 MCG TAB PO SCH (05:38)
[2021-11-25] MEDS: Dextrose 5 % And 0.9 % NaCl 1,000 ML IV SCH (08:53)
[2021-11-25] MEDS: Enoxaparin Sodium 40 MG/0.4 ML SYRINGE SC SCH (08:54)
[2021-11-25] MEDS: Aspirin 325 MG TAB PO SCH (08:54)
[2021-11-25] MEDS: Citalopram 20 MG TAB PO SCH (08:54)
[2021-11-25 12:15] VITALS: TEMP 98.3
[2021-11-25 17:07] VITALS: BP 102/51
== END 2021-11-25 16:21 | DRG 65 ==
LOC: NEURO 10:52
PROVIDERS: ADMIT Family Medicine; ATTEND Hospitalist
DX: I63.89 Other cerebral infarction (principal); J96.11 Chronic respiratory failure with hypoxia; C34.11 Malignant neoplasm of upper lobe, right bronchus or lung; C78.7 Secondary malignant neoplasm of liver and intrahepatic bile duct; C79.51 Secondary malignant neoplasm of bone; G81.91 Hemiplegia, unspecified affecting right dominant side; D61.818 Other pancytopenia; Z20.822 Contact with and (suspected) exposure to COVID-19; I25.10 Atherosclerotic heart disease of native coronary artery without angina pectoris; J44.9 Chronic obstructive pulmonary disease, unspecified; E03.9 Hypothyroidism, unspecified; E78.5 Hyperlipidemia, unspecified; Z96.653 Presence of artificial knee joint, bilateral; F03.90 Unspecified dementia, unspecified severity, without behavioral disturbance, psychotic disturbance, mood disturbance, and anxiety; I71.2 Thoracic aortic aneurysm, without rupture; I70.8 Atherosclerosis of other arteries; Z99.81 Dependence on supplemental oxygen; Z86.73 Personal history of transient ischemic attack (TIA), and cerebral infarction without residual deficits; Z88.2 Allergy status to sulfonamides; Z88.5 Allergy status to narcotic agent; Z91.041 Radiographic dye allergy status; Z88.1 Allergy status to other antibiotic agents; Z88.0 Allergy status to penicillin; Z79.82 Long term (current) use of aspirin; Z79.890 Hormone replacement therapy; Z79.51 Long term (current) use of inhaled steroids; Z79.899 Other long term (current) drug therapy; Z98.42 Cataract extraction status, left eye; Z98.41 Cataract extraction status, right eye; Z90.09 Acquired absence of other part of head and neck; Z90.710 Acquired absence of both cervix and uterus; Z90.49 Acquired absence of other specified parts of digestive tract
CPT/HCPCS: 36415; 70450; 70544; 70549; 70551; 74230; 80048; 80061; 85025; 93306; 93880; 94640; J1650; J2060; J3480; J7042; J7620

== ENCOUNTER 2022-12-04 18:01 | Emergency (ER) | payer MEDICARE, MEDICAID ==
[2022-12-04 18:40] LABS: #Eosinphils 0.3 thou/uL (0.0-0.7); #Lymphocytes 3.2 thou/uL (1.20-3.40); #Monocytes 0.7 thou/uL (0.11-0.59); %Basophils 0.4 % (0.0-1.0); %Eosinophils 3.1 % (0.0-10.0); %Lymphocytes 34.7 % (21.0-51.0); %Monocytes 7.5 % (0.0-10.0); %Neutrophils 54.3 % (42.0-75.0); Hemoglobin 12.7 g/dL (12.0-16.0); Mean Corpuscular HGB CONC 33.3 g/dL (32.0-36.0); Mean Platelet Volume 7.6 fL (7.4-10.4); Platelet Count 249 10x3/uL (130-400); RBC Distribution Width 12.4 % (11.5-14.5); Red Blood Cell (RBC) Count 4.11 mill/uL (4.20-5.40); White Blood Cell (WBC) Count 9.2 10x3/uL (4.8-10.8)
[2022-12-04 19:06] LABS: ALT (SGPT) Less than 7 U/L (8-55); AST (SGOT) 12 U/L (5-34); Albumin 3.7 g/dL (3.4-4.8); Alkaline Phosphatase 111 U/L (40-110); Anion Gap 12 mmol/L (10-20); BUN (Urea Nitrogen) 14 mg/dL (9.8-20.1); Bilirubin, Total 0.5 mg/dL (0.2-1.2); Calc. Creatinine Clearance 0 mL/min (70-130); Calcium 9.4 mg/dL (7.8-10.44); Carbon Dioxide 26 mmol/L (23-31); Chloride 103 mmol/L (98-107); Estimated GFR 93; Globulin 3.5 g/dL (2.4-3.5); Glucose 129 mg/dL (80-115); Protein, Total 7.2 g/dL (5.8-8.1); Sodium 137 mmol/L (136-145)
== END 2022-12-04 21:50 | disposition home or self-care (01) ==
LOC: ERS 18:01
DX: M79.605 Pain in left leg (principal); E03.9 Hypothyroidism, unspecified; J44.9 Chronic obstructive pulmonary disease, unspecified; W18.30XA Fall on same level, unspecified, initial encounter; Z79.899 Other long term (current) drug therapy; Z79.82 Long term (current) use of aspirin
CPT/HCPCS: 36415; 80053; 84484; 85025; 93005

== ENCOUNTER 2023-08-13 09:59 | Outpatient (CLI) | payer MEDICARE, MEDICAID | END 2023-08-13 10:00 | disposition home or self-care (01) | LOC: BICCT 09:59 → EDSTATUS 10:30 | PROVIDERS: ATTEND Internal Medicine Medical Oncology | DX: C34.01 Malignant neoplasm of right main bronchus (principal); M81.8 Other osteoporosis without current pathological fracture; R51.9 Headache, unspecified; R10.9 Unspecified abdominal pain | CPT/HCPCS: 82565 ==

== ENCOUNTER 2023-12-10 12:15 | Inpatient (IN) | payer MEDICARE, MEDICAID ==
[2023-12-10] MEDS ORDERED: diphenhydrAMINE 50 MG/ML VIAL ONE (12:37)
[2023-12-10] MEDS ORDERED: methylPREDNISolone Sod Succ 40 MG VIAL ONE (12:37)
[2023-12-10] MEDS ORDERED: Famotidine/PF 20 mg/2ml Vial ONE (12:37)
[2023-12-10 13:22] LABS: #Basophils 0.1 thou/uL (0.0-0.2); #Eosinphils 0.2 thou/uL (0.0-0.7); #Neutrophils 8.9 thou/uL (1.40-6.50); %Basophils 0.4 % (0.0-1.0); %Eosinophils 1.2 % (0.0-10.0); %Lymphocytes 20.8 % (21.0-51.0); %Monocytes 7.6 % (0.0-10.0); %Neutrophils 66.8 % (42.0-75.0); Hematocrit 36.4 % (36.0-47.0); Hemoglobin 12.1 g/dL (12.0-16.0); Mean Corpuscular HGB CONC 33.2 g/dL (32.0-36.0); Mean Corpuscular Volume 99.2 fl (78.0-98.0); Mean Platelet Volume 9.8 fL (7.4-10.4); Platelet Count 296 10x3/uL (130-400); RBC Distribution Width 13.6 % (11.5-14.5); Red Blood Cell (RBC) Count 3.67 mill/uL (4.20-5.40); White Blood Cell (WBC) Count 13.3 10x3/uL (4.8-10.8)
[2023-12-10 13:27] LABS: Bilirubin Negative (Negative); Blood, Urine Negative (Negative); Glucose, Urine (Dipstick) Negative (Negative); Ketone, Urine Negative (Negative); Leukocyte Negative (Negative); Nitrite Negative (Negative); Protein, Urine (Dipstick) Negative (Neg-Trace)
[2023-12-10 13:31] LABS: Clarity Clear (Clear); Specific Gravity, Urine Greater than 1.060 (1.002-1.036)
[2023-12-10 13:36] LABS: Bacteria/HPF 1+ HPF (None Seen); CAUTI Indications for Culture Alt mental st,lethar; RBC/HPF None Seen HPF (0-3); WBC/HPF 0-3 HPF (0-3)
[2023-12-10 13:38] LABS: Urine Culture Reflex No No
[2023-12-10 13:43] LABS: ALT (SGPT) 8 U/L (8-55); AST (SGOT) 10 U/L (5-34); Albumin 3.3 g/dL (3.4-4.8); Alkaline Phosphatase 51 U/L (40-110); Anion Gap 14 mmol/L (10-20); BUN (Urea Nitrogen) 24 mg/dL (9.8-20.1); Bilirubin, Total 0.3 mg/dL (0.2-1.2); Calc. Creatinine Clearance 0 mL/min (70-130); Calcium 9.1 mg/dL (7.8-10.44); Carbon Dioxide 25 mmol/L (23-31); Chloride 107 mmol/L (98-107); Estimated GFR 86; Globulin 3.1 g/dL (2.4-3.5); Glucose 107 mg/dL (83-110); Potassium 3.9 mmol/L (3.5-5.1); Protein, Total 6.4 g/dL (5.8-8.1); Sodium 142 mmol/L (136-145)
[2023-12-10] MEDS ORDERED: Iopamidol-370 76% 500 ML MDV (1 ML CHARGE) ONE (13:51)
[2023-12-10 13:54] LABS: Troponin I Less than 0.010 ng/mL (< 0.028)
[2023-12-10] MEDS ORDERED: Ipratropium/Albuterol 3 ML NEB EZPAP PRN (14:10)
[2023-12-10] MEDS ORDERED: hydrALAZINE 20 MG/ML VIAL SLOW IVP PRN (14:11)
[2023-12-10] MEDS ORDERED: Acetaminophen 650 MG Suppository PR PRN (14:11)
[2023-12-10] MEDS ORDERED: Senokot S 8.6-50 MG TAB PO PRN (14:11)
[2023-12-10] MEDS ORDERED: Calcium Carbonate 500 MG ChewTAB PO PRN (14:11)
[2023-12-10] MEDS ORDERED: Ondansetron PF 4 MG/2 ML Vial IVP PRN (14:11)
[2023-12-10] MEDS ORDERED: Acetaminophen 325 MG TAB PO PRN (14:11)
[2023-12-10] MEDS ORDERED: Aspirin 81 mg Enteric Coated Tablet PO SCH (14:30)
[2023-12-10] MEDS ORDERED: Clopidogrel Bisulfate 75 MG TAB PO SCH (14:30)
[2023-12-10 17:34] VITALS: BMI 25.6
[2023-12-10] MEDS: Ipratropium/Albuterol 3 ML NEB NEB SCH ×2 (18:14→23:41)
[2023-12-10] MEDS ORDERED: Divalproex Sodium 125 mg Sprinkle Capsule PO SCH (21:00)
[2023-12-10] MEDS ORDERED: Atorvastatin Calcium 40 MG TAB PO SCH (21:00)
[2023-12-10] MEDS: Atorvastatin Calcium 10 MG TAB PO SCH (21:05)
[2023-12-10] MEDS: Sodium Chloride 0.9% 1,000 ML IV SCH (21:06)
[2023-12-11 04:51] LABS: #Monocytes 0.4 thou/uL (0.11-0.59); #Neutrophils 10.1 thou/uL (1.40-6.50); %Basophils 0.2 % (0.0-1.0); %Lymphocytes 14.8 % (21.0-51.0); %Monocytes 3.4 % (0.0-10.0); %Neutrophils 78.5 % (42.0-75.0); Hematocrit 34.9 % (36.0-47.0); Hemoglobin 11.6 g/dL (12.0-16.0); Mean Corpuscular HGB CONC 33.2 g/dL (32.0-36.0); Mean Corpuscular Hemoglobin 32.3 pg (27.0-31.0); Mean Corpuscular Volume 97.2 fl (78.0-98.0); Mean Platelet Volume 9.8 fL (7.4-10.4); Platelet Count 300 10x3/uL (130-400); RBC Distribution Width 13.3 % (11.5-14.5); Red Blood Cell (RBC) Count 3.59 mill/uL (4.20-5.40); White Blood Cell (WBC) Count 12.9 10x3/uL (4.8-10.8)
[2023-12-11 04:55] LABS: Hemoglobin A1c 5.3 % (4.0-6.0)
[2023-12-11 05:00] LABS: ALT (SGPT) 9 U/L (8-55); AST (SGOT) 10 U/L (5-34); Albumin 3.5 g/dL (3.4-4.8); Alkaline Phosphatase 47 U/L (40-110); Anion Gap 12 mmol/L (10-20); BUN (Urea Nitrogen) 18 mg/dL (9.8-20.1); Bilirubin, Total 0.5 mg/dL (0.2-1.2); Calc. Creatinine Clearance 74 mL/min (70-130); Calcium 9.9 mg/dL (7.8-10.44); Carbon Dioxide 23 mmol/L (23-31); Cardiac Risk 3.6 (Less than 4.5); Chloride 103 mmol/L (98-107); Cholesterol 141 mg/dl (< 200 Desired); Estimated GFR 92; Globulin 2.9 g/dL (2.4-3.5); Glucose 107 mg/dL (83-110); HDL Cholesterol 39 mg/dL (>60 Neg Risk); LDL Cholesterol, Calculated 91 mg/dL; Magnesium 1.8 mg/dL (1.6-2.6); Potassium 4.3 mmol/L (3.5-5.1); Protein, Total 6.4 g/dL (5.8-8.1); Sodium 134 mmol/L (136-145); Triglycerides 54 mg/dL (Less than 150)
[2023-12-11] MEDS: Levothyroxine Sodium 25 MCG TAB PO SCH (05:24)
[2023-12-11] MEDS: Ipratropium/Albuterol 3 ML NEB NEB SCH ×4 (07:16→23:34)
[2023-12-11] MEDS ORDERED: Non-Formulary Item 1 EACH (Umeclidinium Brm/Vilanterol Tr [Anoro Ellipta] 62.5 MCG/25 MCG IH SCH (09:00)
[2023-12-11] MEDS ORDERED: Non-Formulary Item 1 EACH (Tiotropium [Spiriva Handihaler] 18 MCG Box) INH SCH (09:00)
[2023-12-11] MEDS ORDERED: Pantoprazole 40 MG VIAL IVP SCH (09:00)
[2023-12-11] MEDS ORDERED: Citalopram 20 MG TAB PO SCH (09:00)
[2023-12-11] MEDS: Clopidogrel Bisulfate 75 MG TAB PO SCH (10:31)
[2023-12-11] MEDS: Enoxaparin 40 MG (0.4 mL) SYRINGE SC SCH (10:31)
[2023-12-11] MEDS: Sodium Chloride 0.9% 1,000 ML IV SCH (10:32)
[2023-12-11] MEDS: Aspirin 81 mg Enteric Coated Tablet PO SCH (10:43)
[2023-12-11 17:09] LABS: #Basophils 0.1 thou/uL (0.0-0.2); #Neutrophils 11.1 thou/uL (1.40-6.50); %Basophils 0.4 % (0.0-1.0); %Eosinophils 0.1 % (0.0-10.0); %Lymphocytes 18.9 % (21.0-51.0); %Monocytes 6.2 % (0.0-10.0); %Neutrophils 72.2 % (42.0-75.0); Hematocrit 38.1 % (36.0-47.0); Hemoglobin 12.7 g/dL (12.0-16.0); Mean Corpuscular HGB CONC 33.3 g/dL (32.0-36.0); Mean Corpuscular Hemoglobin 32.6 pg (27.0-31.0); Mean Corpuscular Volume 97.7 fl (78.0-98.0); Mean Platelet Volume 9.2 fL (7.4-10.4); Platelet Count 338 10x3/uL (130-400); RBC Distribution Width 13.6 % (11.5-14.5); White Blood Cell (WBC) Count 15.4 10x3/uL (4.8-10.8)
[2023-12-11 17:33] LABS: Anion Gap 12 mmol/L (10-20); BUN (Urea Nitrogen) 21 mg/dL (9.8-20.1); Calc. Creatinine Clearance 60 mL/min (70-130); Calcium 10.1 mg/dL (7.8-10.44); Carbon Dioxide 28 mmol/L (23-31); Chloride 100 mmol/L (98-107); Estimated GFR 72; Glucose 116 mg/dL (83-110); Potassium 3.7 mmol/L (3.5-5.1); Sodium 136 mmol/L (136-145)
[2023-12-12] MEDS: Atorvastatin Calcium 10 MG TAB PO SCH ×2 (01:53→21:31)
[2023-12-12] MEDS: Levothyroxine Sodium 25 MCG TAB PO SCH (07:18)
[2023-12-12] MEDS: Ipratropium/Albuterol 3 ML NEB NEB SCH ×4 (07:56→23:26)
[2023-12-12] MEDS: Aspirin 81 mg Enteric Coated Tablet PO SCH (08:55)
[2023-12-12] MEDS: Clopidogrel Bisulfate 75 MG TAB PO SCH (08:55)
[2023-12-12] MEDS: Enoxaparin 40 MG (0.4 mL) SYRINGE SC SCH (08:55)
[2023-12-12] MEDS ORDERED: Cyanocobalamin (Vitamin B-12) 1,000 MCG TAB PO SCH (09:00)
[2023-12-12 13:34] LABS: #Basophils 0.1 thou/uL (0.0-0.2); #Eosinphils 0.1 thou/uL (0.0-0.7); #Neutrophils 9.1 thou/uL (1.40-6.50); %Basophils 0.8 % (0.0-1.0); %Eosinophils 0.8 % (0.0-10.0); %Lymphocytes 24.5 % (21.0-51.0); %Monocytes 7.2 % (0.0-10.0); %Neutrophils 63.7 % (42.0-75.0); Hematocrit 39.7 % (36.0-47.0); Hemoglobin 13.2 g/dL (12.0-16.0); Mean Corpuscular HGB CONC 33.2 g/dL (32.0-36.0); Mean Corpuscular Hemoglobin 32.6 pg (27.0-31.0); Mean Platelet Volume 9.3 fL (7.4-10.4); Platelet Count 326 10x3/uL (130-400); RBC Distribution Width 13.8 % (11.5-14.5); Red Blood Cell (RBC) Count 4.05 mill/uL (4.20-5.40); White Blood Cell (WBC) Count 14.2 10x3/uL (4.8-10.8)
[2023-12-12 13:50] LABS: Anion Gap 15 mmol/L (10-20); BUN (Urea Nitrogen) 19 mg/dL (9.8-20.1); Calc. Creatinine Clearance 76 mL/min (70-130); Calcium 9.2 mg/dL (7.8-10.44); Carbon Dioxide 21 mmol/L (23-31); Chloride 102 mmol/L (98-107); Estimated GFR 93; Glucose 82 mg/dL (83-110); Sodium 134 mmol/L (136-145)
[2023-12-12 15:41] VITALS: BP 132/88
[2023-12-12 16:08] VITALS: TEMP 97.5
== END 2023-12-13 02:17 | DRG 69 ==
LOC: SUATTDRO 12:15 → ERS 12:15 → ERHOLD 14:17 → 2SE 17:19
PROVIDERS: ADMIT Internal Medicine; ATTEND Internal Medicine
DX: G45.9 Transient cerebral ischemic attack, unspecified (principal); I69.353 Hemiplegia and hemiparesis following cerebral infarction affecting right non-dominant side; G93.89 Other specified disorders of brain; R29.90 Unspecified symptoms and signs involving the nervous system; I65.21 Occlusion and stenosis of right carotid artery; I69.320 Aphasia following cerebral infarction; J44.9 Chronic obstructive pulmonary disease, unspecified; E53.8 Deficiency of other specified B group vitamins; Z66 Do not resuscitate; F17.210 Nicotine dependence, cigarettes, uncomplicated; I45.10 Unspecified right bundle-branch block; D72.829 Elevated white blood cell count, unspecified; E78.5 Hyperlipidemia, unspecified; E03.9 Hypothyroidism, unspecified; Z96.651 Presence of right artificial knee joint; F01.50 Vascular dementia, unspecified severity, without behavioral disturbance, psychotic disturbance, mood disturbance, and anxiety; I10 Essential (primary) hypertension; Z88.2 Allergy status to sulfonamides; Z88.5 Allergy status to narcotic agent; Z88.0 Allergy status to penicillin; Z88.8 Allergy status to other drugs, medicaments and biological substances; Z79.82 Long term (current) use of aspirin; Z79.899 Other long term (current) drug therapy; Z79.890 Hormone replacement therapy; Z98.49 Cataract extraction status, unspecified eye; Z90.710 Acquired absence of both cervix and uterus; Z85.118 Personal history of other malignant neoplasm of bronchus and lung
CPT/HCPCS: 36415; 51701; 70450; 70496; 70498; 70551; 71045; 80048; 80053; 80061; 81001; 82607; 83036; 83735; 84484; 85025; 93005; 93306; 94640; 96374; 96375; J1200; J1650; J2920; J7050; J7620; Q9967; S0028

== ENCOUNTER 2023-12-28 10:19 | Emergency (ER) | payer MEDICARE, MEDICAID ==
[2023-12-28 11:22] LABS: #Basophils 0.1 thou/uL (0.0-0.2); #Monocytes 2.1 thou/uL (0.11-0.59); #Neutrophils 13.6 thou/uL (1.40-6.50); %Basophils 0.8 % (0.0-1.0); %Eosinophils 0.2 % (0.0-10.0); %Lymphocytes 11.1 % (21.0-51.0); %Monocytes 11.5 % (0.0-10.0); %Neutrophils 73.7 % (42.0-75.0); Hematocrit 38.1 % (36.0-47.0); Mean Corpuscular HGB CONC 31.5 g/dL (32.0-36.0); Mean Corpuscular Hemoglobin 31.6 pg (27.0-31.0); Mean Corpuscular Volume 100.3 fl (78.0-98.0); Mean Platelet Volume 10.3 fL (7.4-10.4); Platelet Count 337 10x3/uL (130-400); RBC Distribution Width 13.3 % (11.5-14.5); White Blood Cell (WBC) Count 18.5 10x3/uL (4.8-10.8)
[2023-12-28] MEDS ORDERED: Ipratropium/Albuterol 3 ML NEB ONE (11:34)
[2023-12-28 11:44] LABS: ALT (SGPT) Less than 7 U/L (8-55); AST (SGOT) 9 U/L (5-34); Albumin 3.3 g/dL (3.4-4.8); Alkaline Phosphatase 71 U/L (40-110); Anion Gap 16 mmol/L (10-20); BUN (Urea Nitrogen) 24 mg/dL (9.8-20.1); Bilirubin, Total 0.6 mg/dL (0.2-1.2); Calc. Creatinine Clearance 0 mL/min (70-130); Calcium 10.1 mg/dL (7.8-10.44); Carbon Dioxide 20 mmol/L (23-31); Chloride 106 mmol/L (98-107); Estimated GFR 96; Globulin 3.8 g/dL (2.4-3.5); Glucose 98 mg/dL (83-110); Potassium 3.3 mmol/L (3.5-5.1); Protein, Total 7.1 g/dL (5.8-8.1); Sodium 139 mmol/L (136-145)
== END 2023-12-28 14:27 | disposition home or self-care (01) ==
LOC: ERS 10:19
DX: J18.9 Pneumonia, unspecified organism (principal); J44.9 Chronic obstructive pulmonary disease, unspecified; F17.210 Nicotine dependence, cigarettes, uncomplicated; Z86.73 Personal history of transient ischemic attack (TIA), and cerebral infarction without residual deficits
CPT/HCPCS: 36416; 71045; 80053; 85025; 93005; 94640; 94760; J7620

== ENCOUNTER 2023-12-28 17:59 | Inpatient (IN) | payer MEDICARE, MEDICAID ==
[~2023-12-28 17:59] MED LIST changes: +Iopamidol-370 76% 500 ML MDV (1 ML CHARGE) ONE; -Magnevist 469MG/ML 20 ML VIAL ONE
[2023-12-28 19:36] LABS: #Basophils 0.1 thou/uL (0.0-0.2); #Monocytes 1.8 thou/uL (0.11-0.59); #Neutrophils 13.2 thou/uL (1.40-6.50); %Basophils 0.4 % (0.0-1.0); %Eosinophils 0.1 % (0.0-10.0); %Lymphocytes 11.3 % (21.0-51.0); %Monocytes 10.1 % (0.0-10.0); %Neutrophils 74.3 % (42.0-75.0); Hematocrit 35.2 % (36.0-47.0); Hemoglobin 11.3 g/dL (12.0-16.0); Mean Corpuscular HGB CONC 32.1 g/dL (32.0-36.0); Mean Corpuscular Hemoglobin 31.7 pg (27.0-31.0); Mean Corpuscular Volume 98.9 fl (78.0-98.0); Mean Platelet Volume 10.1 fL (7.4-10.4); Platelet Count 371 10x3/uL (130-400); RBC Distribution Width 13.3 % (11.5-14.5); Red Blood Cell (RBC) Count 3.56 mill/uL (4.20-5.40); White Blood Cell (WBC) Count 17.7 10x3/uL (4.8-10.8)
[2023-12-28 20:03] LABS: ALT (SGPT) Less than 7 U/L (8-55); AST (SGOT) 9 U/L (5-34); Alkaline Phosphatase 67 U/L (40-110); Anion Gap 13 mmol/L (10-20); BUN (Urea Nitrogen) 27 mg/dL (9.8-20.1); Bilirubin, Total 0.5 mg/dL (0.2-1.2); Calc. Creatinine Clearance 0 mL/min (70-130); Carbon Dioxide 26 mmol/L (23-31); Chloride 105 mmol/L (98-107); Estimated GFR 94; Globulin 3.8 g/dL (2.4-3.5); Glucose 109 mg/dL (83-110); Potassium 2.9 mmol/L (3.5-5.1); Protein, Total 6.8 g/dL (5.8-8.1); Sodium 141 mmol/L (136-145)
[2023-12-28] MEDS ORDERED: diphenhydrAMINE 50 MG/ML VIAL ONE (20:21)
[2023-12-28] MEDS ORDERED: Famotidine/PF 20 mg/2ml Vial ONE (20:22)
[2023-12-28] MEDS ORDERED: methylPREDNISolone Sod Succ 40 MG VIAL ONE (20:22)
[2023-12-28 21:23] LABS: SARS-CoV-2 NAA Rapid Test Not Detected (NotDetected)
[2023-12-28] MEDS ORDERED: Potassium Chloride 20 MEQ TAB ONE (22:55)
[2023-12-28] MEDS ORDERED: Potassium Chloride 20 MEQ (100 mL) BAG ONE (22:57)
[2023-12-28] MEDS ORDERED: Ondansetron PF 4 MG/2 ML Vial IVP PRN (23:51)
[2023-12-28] MEDS ORDERED: Ondansetron ODT 4 MG TAB PO PRN (23:51)
[2023-12-28] MEDS ORDERED: Albuterol 2.5 MG (3 mL) NEB ONE (23:58)
[2023-12-28] MEDS ORDERED: Ipratropium Bromide 2.5 ml Neb ONE (23:58)
[2023-12-29] MEDS ORDERED: cefTRIAXone (ROCEPHIN) 2 GM VIAL ONE (00:01)
[2023-12-29] MEDS ORDERED: Sodium Chloride 0.9% 100 ML ONE (00:01)
[2023-12-29 00:10] LABS: Analyzer IN Cardio ER; Base Excess (BEa) 1.8 mEq/L (-2.0 to +3.0); CO2 Tension 34.2 mmHg (35.0-45.0); Calcium, Ionized (arterial) 1.31 mmol/L (1.12-1.30); Carboxyhemoglobin (COHb) 0.8 gm% (0.0-3.0); Hematocrit-ABG 35 % (36.0-47.0); Hemoglobin (Hb) 11.9 g/dL (12.0-16.0); O2 Tension (PaO2), arterial 67.6 mmHg (> 70.0); Potassium - ABG Lab 4.01 mmol/L (3.70-5.30); pH, Arterial 7.481 (7.35-7.45)
[2023-12-29 00:16] LABS: Puncture Site LRA
[2023-12-29] MEDS ORDERED: Vancomycin 1 GM/200 ML (FROZEN) BAG ONE (01:05)
[2023-12-29 02:31] LABS: Magnesium 1.9 mg/dL (1.6-2.6)
[2023-12-29] MEDS: Potassium Chloride 20 MEQ in Premix 1 BAG IVPB SCH (03:19)
[2023-12-29 04:52] LABS: #Basophils 0.1 thou/uL (0.0-0.2); #Monocytes 0.4 thou/uL (0.11-0.59); #Neutrophils 13.6 thou/uL (1.40-6.50); %Basophils 0.5 % (0.0-1.0); %Lymphocytes 4.3 % (21.0-51.0); %Monocytes 2.3 % (0.0-10.0); %Neutrophils 88.4 % (42.0-75.0); Hematocrit 35.5 % (36.0-47.0); Hemoglobin 11.3 g/dL (12.0-16.0); Mean Corpuscular HGB CONC 31.8 g/dL (32.0-36.0); Mean Corpuscular Hemoglobin 31.8 pg (27.0-31.0); Mean Platelet Volume 10.4 fL (7.4-10.4); Platelet Count 360 10x3/uL (130-400); RBC Distribution Width 13.4 % (11.5-14.5); Red Blood Cell (RBC) Count 3.55 mill/uL (4.20-5.40); White Blood Cell (WBC) Count 15.4 10x3/uL (4.8-10.8)
[2023-12-29 05:20] LABS: Anion Gap 16 mmol/L (10-20); BUN (Urea Nitrogen) 23 mg/dL (9.8-20.1); Calc. Creatinine Clearance 76 mL/min (70-130); Carbon Dioxide 23 mmol/L (23-31); Chloride 106 mmol/L (98-107); Estimated GFR 92; Glucose 208 mg/dL (83-110); Potassium 4.2 mmol/L (3.5-5.1); Sodium 141 mmol/L (136-145)
[2023-12-29] MEDS ORDERED: Ipratropium/Albuterol 3 ML NEB ONE (06:14)
[2023-12-29] MEDS: Ipratropium/Albuterol 3 ML NEB NEB SCH ×2 (06:19→12:07)
[2023-12-29] MEDS: Doxycycline 100 MG in Sodium Chloride 0.9% 100 ML IVPB SCH (10:51)
[2023-12-29] MEDS: Enoxaparin 40 MG (0.4 mL) SYRINGE SC SCH (10:57)
[2023-12-29] MEDS: Clopidogrel Bisulfate 75 MG TAB PO SCH (11:10)
[2023-12-29 11:23] LABS: Bacteria/HPF None Seen HPF (None Seen); Bilirubin Negative (Negative); Blood, Urine Negative (Negative); CAUTI Indications for Culture Urological Procedure; Clarity Clear (Clear); Glucose, Urine (Dipstick) Normal (Negative); Ketone, Urine 40 mg/dL (Negative); Leukocyte Negative Leu/uL (Negative); Nitrite Negative (Negative); Protein, Urine (Dipstick) 30 mg/dL (Neg-Trace); RBC/HPF 0-3 HPF (0-3); Urobilinogen Normal mg/dL (Less than 2); WBC/HPF 0-3 HPF (0-3)
[2023-12-29] MEDS: Levothyroxine Sodium 25 MCG TAB PO SCH (11:26)
[2023-12-29 11:37] LABS: Specific Gravity, Urine Greater than 1.060 (1.002-1.036)
[2023-12-29 11:39] LABS: Urine Culture Reflex Yes Yes
[2023-12-29] MEDS ORDERED: cefTRIAXone\\ROCEPHIN 1 GM in Sodium Chloride 0.9% 100 ML IVPB SCH (12:00)
[2023-12-29] MEDS: predniSONE 20 MG TAB PO SCH (12:27)
[2023-12-29] MEDS: cefTRIAXone\\ROCEPHIN 1 GM in Sodium Chloride 0.9% 100 ML IVPB SCH (13:49)
[2023-12-29] MEDS: Megestrol Acetate 800 MG/20 ML UDCUP PO SCH (21:31)
[2023-12-29] MEDS: Atorvastatin Calcium 10 MG TAB PO SCH (21:32)
[2023-12-29] MEDS: Divalproex Sodium 500 MG ER.TAB PO SCH (21:32)
[2023-12-30 04:45] LABS: Hemoglobin 10.4 g/dL (12.0-16.0); Manual Diff?? YES; Mean Corpuscular HGB CONC 31.5 g/dL (32.0-36.0); Mean Corpuscular Hemoglobin 31.3 pg (27.0-31.0); Mean Corpuscular Volume 99.4 fl (78.0-98.0); Mean Platelet Volume 10.3 fL (7.4-10.4); Platelet Count 377 10x3/uL (130-400); RBC Distribution Width 13.8 % (11.5-14.5); Red Blood Cell (RBC) Count 3.32 mill/uL (4.20-5.40); White Blood Cell (WBC) Count 15.7 10x3/uL (4.8-10.8)
[2023-12-30 04:50] LABS: Delete Auto Diff?? YES
[2023-12-30] MEDS: Levothyroxine Sodium 25 MCG TAB PO SCH (05:02)
[2023-12-30 05:28] LABS: CellaVision Operator ID LAB.CLH1; Hypochromia SLIGHT = 6-15 cells HPF (0-5); Lymphocytes 18 % (21-51); Monocytes 5 % (0-10); Myelocyte 2 % (0-0); Neutrophil 71 % (42-75); Platelet Adequacy Comment Platelets Normal; Polychromasia SLIGHT = 2-3 cells HPF (0-2); Promyelocytes 2 % (0-0); Reactive Lymphocytes 2 % (0-10); Total Cell Count 100
[2023-12-30 05:31] LABS: Anion Gap 10 mmol/L (10-20); BUN (Urea Nitrogen) 20 mg/dL (9.8-20.1); Calc. Creatinine Clearance 96 mL/min (70-130); Calcium 9.4 mg/dL (7.8-10.44); Carbon Dioxide 27 mmol/L (23-31); Chloride 109 mmol/L (98-107); Estimated GFR 99; Glucose 92 mg/dL (83-110); Potassium 3.8 mmol/L (3.5-5.1); Sodium 142 mmol/L (136-145)
[2023-12-30] MEDS ORDERED: Non-Formulary Item 1 EACH (Tiotropium [Spiriva Handihaler] 18 MCG Box) INH SCH (09:00)
[2023-12-30] MEDS: Citalopram 20 MG TAB PO SCH (09:13)
[2023-12-30] MEDS: Aspirin 81 mg Enteric Coated Tablet PO SCH (09:13)
[2023-12-30] MEDS: Clopidogrel Bisulfate 75 MG TAB PO SCH (09:13)
[2023-12-30] MEDS: predniSONE 20 MG TAB PO SCH (09:13)
[2023-12-30] MEDS: Cyanocobalamin (Vitamin B-12) 1,000 MCG TAB PO SCH (09:13)
[2023-12-30 18:26] VITALS: BMI 21.6
[2023-12-30] MEDS: Acetaminophen 325 MG TAB PO PRN (22:27)
[2023-12-31 06:31] LABS: Hematocrit 33.3 % (36.0-47.0); Hemoglobin 10.8 g/dL (12.0-16.0); Manual Diff?? YES; Mean Corpuscular HGB CONC 32.4 g/dL (32.0-36.0); Mean Corpuscular Hemoglobin 31.8 pg (27.0-31.0); Mean Corpuscular Volume 97.9 fl (78.0-98.0); Mean Platelet Volume 10.3 fL (7.4-10.4); Platelet Count 343 10x3/uL (130-400); RBC Distribution Width 13.8 % (11.5-14.5); White Blood Cell (WBC) Count 15.7 10x3/uL (4.8-10.8)
[2023-12-31 06:43] LABS: Delete Auto Diff?? YES
[2023-12-31 07:06] LABS: Anion Gap 13 mmol/L (10-20); BUN (Urea Nitrogen) 16 mg/dL (9.8-20.1); Calc. Creatinine Clearance 87 mL/min (70-130); Calcium 9.6 mg/dL (7.8-10.44); Carbon Dioxide 22 mmol/L (23-31); Chloride 107 mmol/L (98-107); Estimated GFR 97; Glucose 84 mg/dL (83-110); Potassium 3.9 mmol/L (3.5-5.1); Sodium 138 mmol/L (136-145)
[2023-12-31 07:09] LABS: Band 5 % (5-11); CellaVision Operator ID lab.sh2; Lymphocytes 19 % (21-51); Monocytes 12 % (0-10); Neutrophil 64 % (42-75); Nucleated RBC (Manual Ct) 1 % (0); Platelet Adequacy Comment Platelets Normal; Polychromasia SLIGHT = 2-3 cells HPF (0-2); Smudge Cells 15.5 %; Total Cell Count 103; Vacuoles SLIGHT
[2023-12-31 11:52] VITALS: BP 108/58; TEMP 97.9
== END 2023-12-31 14:40 | DRG 189 ==
LOC: ERS 17:59 → 2NO 23:39 → ERHOLD 23:57 → 2NO 12-29 09:44 → OBSVTOIN 12-30 10:12
PROVIDERS: ADMIT Physician Assistant; ATTEND Emergency Medicine
PROC: 4A133R1 Monitoring of Arterial Saturation, Peripheral, Percutaneous Approach (ICD-10-PCS; principal; 2023-12-29)
DX: J96.21 Acute and chronic respiratory failure with hypoxia (principal); C34.11 Malignant neoplasm of upper lobe, right bronchus or lung; C78.7 Secondary malignant neoplasm of liver and intrahepatic bile duct; C79.51 Secondary malignant neoplasm of bone; J44.1 Chronic obstructive pulmonary disease with (acute) exacerbation; I69.351 Hemiplegia and hemiparesis following cerebral infarction affecting right dominant side; I25.10 Atherosclerotic heart disease of native coronary artery without angina pectoris; E03.9 Hypothyroidism, unspecified; E78.5 Hyperlipidemia, unspecified; Z96.651 Presence of right artificial knee joint; E87.6 Hypokalemia; D72.829 Elevated white blood cell count, unspecified; Z66 Do not resuscitate; T17.990A Other foreign object in respiratory tract, part unspecified in causing asphyxiation, initial encounter; F03.90 Unspecified dementia, unspecified severity, without behavioral disturbance, psychotic disturbance, mood disturbance, and anxiety; Z88.2 Allergy status to sulfonamides; Z88.8 Allergy status to other drugs, medicaments and biological substances; Z88.0 Allergy status to penicillin; Z99.81 Dependence on supplemental oxygen; Z91.041 Radiographic dye allergy status; Z88.5 Allergy status to narcotic agent; Z79.899 Other long term (current) drug therapy; Z79.890 Hormone replacement therapy; Z79.82 Long term (current) use of aspirin; Z98.41 Cataract extraction status, right eye; Z98.42 Cataract extraction status, left eye; Z90.710 Acquired absence of both cervix and uterus; Z90.89 Acquired absence of other organs; Z90.49 Acquired absence of other specified parts of digestive tract; Z11.52 Encounter for screening for COVID-19
CPT/HCPCS: 36415; 36416; 36600; 70450; 71045; 71275; 80048; 80053; 81001; 82805; 83605; 83735; 84484; 85025; 85379; 87040; 87086; 93005; 94640; 94644; 94760; 96365; 96366; 96367; 96375; J0696; J1200; J1650; J2920; J3370-JW; J3480; J3490; J7512; J7611; J7620; Q9967; S0028